=== PATIENT | female | born 1975 | race Caucasian/White ===

== ENCOUNTER → 2020-12-30 | Outpatient (CLI) | payer BC | LOC: LAB SHORT 10:40 → LAB 10:40 | PROVIDERS: Family Medicine | DX: Z01.419 Encounter for gynecological examination (general) (routine) without abnormal findings (principal) | CPT/HCPCS: G0145 ==

== ENCOUNTER 2022-03-19 06:39 | Day surgery (SDC) | payer BC ==
[~2022-03-19] VITALS: Ht 149.9 cm; Wt 78.7 kg
--- NOTE | 2022-03-19 08:36 | NUR ---
03/19/22 0836 INO CERVANTES PT REQUESTS WC TO GO OUT TO CAR. DENIES PAIN, ONLY NUMBNESS
== END 2022-03-19 08:34 | disposition home or self-care (01) ==
LOC: ORSCSDS 06:39
PROVIDERS: Orthopaedic Surgery
PROC: 01N50ZZ Release Median Nerve, Open Approach (ICD-10-PCS; principal; 2022-03-19 08:00)
DX: G56.03 Carpal tunnel syndrome, bilateral upper limbs (principal); E66.9 Obesity, unspecified; Z68.35 Body mass index [BMI] 35.0-35.9, adult
CPT/HCPCS: J2250; J2704; J3010; J7120